=== PATIENT | female | born 1945 | race Caucasian/White ===

== ENCOUNTER 2016-09-20 22:45 | Emergency (ER) | payer MEDICARE, OTHER ==
[~2016-09-20 22:45] MED LIST: ASPIRIN EC81 MG PO; ATORVASTATIN CA10 M1 PO; FLOVENT DISKUS50 MCG IH; UNK BP MED PO; VITAMIN D2000 UNIT PO; ZESTORETIC 10-1 EAC1 PO; ZOFRAN4 M2 PO
== END 2016-09-20 23:40 ==
LOC: EDMED 22:45
DX: I10 Essential (primary) hypertension (principal); E78.5 Hyperlipidemia, unspecified